=== PATIENT | female | born 1970 | race Caucasian/White ===

== ENCOUNTER 2017-05-18 06:47 | Observation (INO) | payer BC, OTHER ==
[2017-05-10 11:08] LABS: HEMATOCRIT 45.6 % (34.6-47.8); HEMOGLOBIN 15.2 g/dL (11.7-16.4); WHITE BLOOD COUNT 6.3 x10^3/uL (3.4-10)
[2017-05-10 11:20] LABS: BLOOD UREA NITROGEN 20 mg/dL (7-18)
[~2017-05-18] VITALS: Ht 160 cm; Wt 119.1 kg
[~2017-05-18 06:47] MED LIST: CARB100T4 PO; DIVA500T2 PO; ESTR1TAB15 PO; HYDR-3241 PO; MIRT30TA PO; OXYC1TAB7 PO; QUET100T4 PO; TOPI15CA PO
[2017-05-18] MEDS ORDERED: BUPIVACAINE/PF-EPI 0.5% 1:200K ONE (07:05)
[2017-05-18] MEDS ORDERED: BACITRACIN 50,000 UNIT ONE (07:05)
[2017-05-18] MEDS ORDERED: THROMBIN 5,000 UNIT VIAL TP ONE (07:05)
[2017-05-18] MEDS ORDERED: LACTATED RINGERS 1,000 ML IV SCH (08:13)
[2017-05-18] MEDS ORDERED: FENTANYL PF 250 MCG/5ML ONE (09:16)
[2017-05-18] MEDS ORDERED: MIDAZOLAM 1 MG/ML, 2ML ONE (09:16)
[2017-05-18] MEDS ORDERED: PROPOFOL 10 MG/ML, 20ML ONE (09:51)
[2017-05-18] MEDS ORDERED: CEFAZOLIN 1,000 MG ONE (09:51)
[2017-05-18] MEDS ORDERED: LABETALOL 5MG/ML 40ML VIAL ONE (09:51)
[2017-05-18] MEDS ORDERED: SUCCINYLCHOLINE 20 MG/ML, 10ML ONE (09:51)
[2017-05-18] MEDS ORDERED: DEXAMETHASONE 4 MG/ML, 5ML ONE (09:51)
[2017-05-18] MEDS ORDERED: HYDROmorphone 2 MG/ML, 1ML ONE (10:17)
[2017-05-18] MEDS ORDERED: ONDANSETRON 2MG/ML, 2ML IVPush PRN (11:00)
[2017-05-18] MEDS ORDERED: MORPHINE SULFATE 4 MG/ML, 1ML IVPush PRN (11:00)
[2017-05-18] MEDS ORDERED: OXYcodone 5 MG/5 ML ORAL.SOL UDC PO PRN (11:00)
[2017-05-18] MEDS ORDERED: MIDAZOLAM 1 MG/ML, 2ML IV PRN (11:00)
[2017-05-18] MEDS ORDERED: METOCLOPRAMIDE 5 MG/ML, 2ML IV PRN (11:00)
[2017-05-18] MEDS ORDERED: FENTANYL PF 100 MCG/2ML IV PRN (11:00)
[2017-05-18] MEDS ORDERED: ALBUTEROL/IPRATROPIUM 2.5MG/0.5MG, 3 ML NPPB PRN (11:00)
[2017-05-18] MEDS ORDERED: MEPERIDINE/PF 25MG/0.5ML IVPush PRN (11:00)
[2017-05-18] MEDS ORDERED: PROMETHAZINE 25 MG/ML, 1ML IV PRN (11:00)
[2017-05-18] MEDS ORDERED: ACETAMINOPHEN 325 MG TABLET PO PRN (11:00)
[2017-05-18] MEDS ORDERED: DIAZEPAM 5 MG/ML, 2ML IVPush PRN (11:00)
[2017-05-18] MEDS ORDERED: LABETALOL 5MG/ML, 20ML IV PRN (11:00)
[2017-05-18] MEDS ORDERED: hydrALAzine 20 MG/ML, 1ML IV PRN (11:00)
[2017-05-18] MEDS ORDERED: ACETAMINOPHEN 650 MG/20.3 ML UDC ONE (13:25)
[2017-05-18] MEDS ORDERED: ONDANSETRON 2MG/ML, 2ML ONE (13:25)
[2017-05-18] MEDS ORDERED: FENTANYL PF 100 MCG/2ML ONE (13:25)
[2017-05-18] MEDS ORDERED: OXYcodone 5 MG/5 ML ORAL.SOL UDC ONE (13:26)
[2017-05-18] MEDS ORDERED: OXYcodone/APAP 10/325MG TABLET PO PRN (14:30)
[2017-05-18] MEDS ORDERED: HYDROmorphone/PF 4 MG/ML, 1ML IM PRN (14:30)
[2017-05-18] MEDS ORDERED: DIAZEPAM 5 MG TABLET PO PRN ×2 (14:30→16:30)
[2017-05-18] MEDS ORDERED: PHARMACY MAY ADJ FOR RENAL FX MC PRN (15:30)
[2017-05-18] MEDS ORDERED: PROMETHAZINE 25 MG/ML, 1ML IM PRN ×2 (15:30→16:30)
[2017-05-18] MEDS ORDERED: PROMETHAZINE 25 MG/ML, 1ML ONE (15:31)
[2017-05-18] MEDS ORDERED: MAGNESIUM HYDROXIDE 8%, 30ML UDC PO PRN (16:30)
[2017-05-18] MEDS ORDERED: HYDROmorphone 2 MG/ML, 1ML IM PRN (16:30)
[2017-05-18] MEDS ORDERED: ONDANSETRON 2MG/ML, 2ML IV PRN (16:30)
[2017-05-18] MEDS ORDERED: BISACODYL 10 MG SUPP PR PRN (16:30)
[2017-05-18] MEDS ORDERED: DIPHENHYDRAMINE 50 MG/ML, 1ML IVPush PRN (16:30)
[2017-05-18] MEDS ORDERED: DIPHENHYDRAMINE 50 MG CAPSULE PO PRN (16:30)
[2017-05-18] MEDS ORDERED: NS + 20MEQ KCL 1,000 ML IV SCH (16:30)
[2017-05-18] MEDS ORDERED: DIPHENHYDRAMINE 50 MG/ML, 1ML IM PRN (16:30)
[2017-05-18 19:47] VITALS: BP 114/69
[2017-05-18 20:00] VITALS: BP 114/69
[2017-05-18] MEDS ORDERED: OXYcodone IR 5MG TABLET PO PRN (20:00)
[2017-05-18] MEDS: CEFAZOLIN PMX 1GM/50ML 50 ML IVPB SCH (20:31)
[2017-05-18] MEDS: NS + 20MEQ KCL 1,000 ML IV SCH (20:31)
[2017-05-18] MEDS: BACLOFEN 10 MG TABLET PO SCH (22:19)
[2017-05-18] MEDS: OXYcodone/APAP 5/325MG TABLET PO PRN ×2 (22:55→23:55)
[2017-05-18 23:13] VITALS: BP 113/52
[2017-05-19 03:36] VITALS: BP 100/60
[2017-05-19] MEDS: OXYcodone/APAP 5/325MG TABLET PO PRN ×2 (04:05→08:44)
[2017-05-19] MEDS: CEFAZOLIN PMX 1GM/50ML 50 ML IVPB SCH (04:05)
[2017-05-19 07:25] VITALS: BP 100/55
[2017-05-19] MEDS: BACLOFEN 10 MG TABLET PO SCH (08:44)
[2017-05-19] MEDS: NS + 20MEQ KCL 1,000 ML IV SCH (08:46)
[2017-05-19] MEDS ORDERED: ESTRADIOL 1 MG TABLET PO SCH (09:00)
[2017-05-19] MEDS ORDERED: SENNA/DOCUSATE TABLET PO SCH (09:00)
[2017-05-19 12:00] VITALS: BP 112/77
[2017-05-19] MEDS ORDERED: OXYC-229 PO (12:40)
[2017-05-19] MEDS ORDERED: SENN-25 PO (12:41)
== END 2017-05-19 12:50 | disposition home or self-care (01) ==
LOC: OUT 06:47 → ORIP 15:11 → INTOOBSV 15:11 → 4NOR 16:59 → DCLOUNGE 05-19 12:37
PROVIDERS: ADMIT Neurological Surgery; ATTEND Neurological Surgery
DX: M54.16 Radiculopathy, lumbar region (principal); H53.8 Other visual disturbances; G43.109 Migraine with aura, not intractable, without status migrainosus; I10 Essential (primary) hypertension; Z86.73 Personal history of transient ischemic attack (TIA), and cerebral infarction without residual deficits
CPT/HCPCS: 36415; 63047; 70450; 72100; 82962; 85610; 96365; 96375; G0378; J0330; J0690; J1100; J1170; J2250; J2405; J2550; J2704; J3010; J3360; J3480; J7120; 71020; 80048; 85025; 85730